=== PATIENT | female | born 1980 | race Caucasian/White ===

== ENCOUNTER → 2019-03-19 | Outpatient (REF) | LOC: M LAB 15:15 | PROVIDERS: ATTEND Nurse Practitioner Adult Health | DX: Z02.9 Encounter for administrative examinations, unspecified (principal) ==

== ENCOUNTER 2019-04-26 11:41 | Emergency (ER) | payer SELFPAY ==
[~2019-04-26] VITALS: Ht 157.5 cm; Wt 80.9 kg
[2019-04-26 11:42] VITALS: BP 150/78
[2019-04-26] MEDS ORDERED: FLON1SPR NARES (12:27)
[2019-04-26] MEDS ORDERED: MECL1TAB31 PO (12:27)
== END 2019-04-26 12:30 | disposition home or self-care (01) ==
LOC: M ED 11:41
DX: H81.4 Vertigo of central origin (principal); H65.02 Acute serous otitis media, left ear; Z79.899 Other long term (current) drug therapy